=== PATIENT | female | born 1975 | race Caucasian/White ===

== ENCOUNTER 2016-09-18 17:45 | Emergency (ER) | payer OTHER ==
[~2016-09-18] VITALS: Ht 157.5 cm; Wt 82.0 kg
[~2016-09-18 17:45] MED LIST: ABILIFY10 M1 PO; ACYCLOVIR400 MG PO; ADVAIR DISK1 INH; AMOXICILLIN500 MG PO; ATIVAN0.5 MG PO; AUGMENTIN875TAB PO; BACTRIM DS1 TAB PO; BUSPAR5 MG PO; CELEXA20 M1 PO; CEPHALEXIN500 MG PO; CIPROFLOXACN500 MG PO; DIVALPROEX SOD250 MG PO; HALDOL5 MG PO; LAMICTAL25 M2 PO; LISINOPRIL10 MG PO; LORTAB 10-325 M1 TAB PO; MACROBID100 MG PO; METOPROL TAR25 MG PO; METRONIDAZOL500 MG PO; MULTIVITAL-M PO; NAPROSYN500 MG PO; NITROSTAT0.4 MG SL; OLANZAPINE10 MG PO; PAXIL30 MG PO; PREDNISONE10 MG PO; PREVACID30 M3 PO; PROAIR HFA IN; PROMETHAZI6.25 MG/5 PO; PROZAC10 MG PO; PROZAC20 MG PO; REMERON15 MG PO; ROBITUSSIN AC10 ML PO; SEROQUEL25 MG PO; SIMVASTATIN10 MG PO; TRAZODONE50 MG PO; ULTRAM50 M1 PO; VASOTEC5 MG PO; VENTOLIN HFA IN; VISTARIL 50MG C50 M1 PO; VISTARIL25 MG PO; ZOFRAN ODT4 MG PO; ZOFRAN4 MG/TAB PO
[2016-09-18 18:31] LABS: HEMATOCRIT 35.9 % (37.0-47.0); HEMOGLOBIN 11.6 g/dl (12.0-16.0); IMMATURE GRANULOCYTES 0.6 % (0.0-1.0); MEAN CELL VOLUME 91.1 fL CALC (80.0-100.0); MEAN CORPUSCULAR HGB 29.4 pG CALC (26.0-32.0); MEAN CORPUSCULAR HGB CONC 32.3 g/L CALC (32.0-36.0); NEUT# 5.16 thou/uL (2.00-7.15); RED BLOOD COUNT 3.94 mill/uL (4.20-5.60); RED CELL DISTRI WIDTH 15.9 % (11.5-15.5)
[2016-09-18 18:51] LABS: ALKALINE PHOSPHATASE 175 u/l (38-126); ANION GAP 16 (6-22 (CALC)); BILIRUBIN, TOTAL 0.3 mg/dL (0.0-1.4); BUN 4 mg/dL (7-17); BUN/CREATININE RATIO 7 (12-20 (CALC)); CALCIUM 9.8 mg/dL (8.4-10.2); CARBON DIOXIDE 28 mmol/l (22-30); CHLORIDE 103 mmol/l (95-108); CREATININE 0.7 mg/dL (0.5-1.0); GFR > 60 ML/MIN (>=60 (CALC)); GFR FOR AFR.AMER. > 60 ML/MIN (>=60 (CALC)); GLUCOSE 83 mg/dL (65-105); POTASSIUM 3.9 mmol/l (3.5-5.1); SGOT/AST 43 u/l (14-36); SGPT/ALT 51 u/l (9-52); SODIUM 143 mmol/l (137-146); TOTAL PROTEIN 7.2 g/dL (6.3-8.2)
[2016-09-18 18:58] LABS: MYOGLOBIN 31 ng/mL (0 - 62)
--- NOTE | 2016-09-18 20:25 | NUR ---
EXPLANATION GIVEN IN HOW TO BREATH DEEPLY FOR GOOD DEPOSITION TO THE LUNGS.
[2016-09-18] MEDS ORDERED: VENTOLIN HFA IN (21:15)
[2016-09-18] MEDS ORDERED: PREDNISONE10 MG PO (21:15)
[2016-09-18] MEDS ORDERED: PEPCID20 MG PO (21:16)
[2016-09-18 21:33] VITALS: BP 138/83
[2016-09-18 22:20] LABS: URINE BILIRUBIN - DIPSTICK NEGATIVE (NEGATIVE); URINE BLOOD DIPSTICK NEGATIVE (NEGATIVE); URINE CLARITY CLEAR; URINE COLOR YELLOW; URINE GLUCOSE - DIPSTICK NEGATIVE (NEGATIVE); URINE KETONE NEGATIVE (NEGATIVE); URINE LEUK ESTERASE NEGATIVE (Negative); URINE NITRITE - DIPSTICK NEGATIVE (Negative); URINE PROTEIN - DIPSTICK NEGATIVE (NEG-TRACE); URINE SPECIFIC GRAVITY <=1.005; URINE UROBILINOGEN - DIPSTICK 0.2 E.U./dL (0.2)
== END 2016-09-18 21:33 | disposition home or self-care (01) | DRG 918 ==
LOC: ED 17:45 → ED-I 20:50 → ED 21:33
PROVIDERS: Emergency Medicine
DX: T36.0X5A Adverse effect of penicillins, initial encounter (principal); J44.1 Chronic obstructive pulmonary disease with (acute) exacerbation; I10 Essential (primary) hypertension; J45.909 Unspecified asthma, uncomplicated; F41.9 Anxiety disorder, unspecified; E11.9 Type 2 diabetes mellitus without complications; F10.10 Alcohol abuse, uncomplicated; G40.909 Epilepsy, unspecified, not intractable, without status epilepticus; F31.9 Bipolar disorder, unspecified; E78.5 Hyperlipidemia, unspecified; F17.210 Nicotine dependence, cigarettes, uncomplicated

== ENCOUNTER 2016-10-15 11:05 | Emergency (ER) | payer OTHER ==
[~2016-10-15] VITALS: Ht 157.5 cm; Wt 85.0 kg
[~2016-10-15 11:05] MED LIST changes: +PEPCID20 MG PO
[2016-10-15] MEDS ORDERED: PREDNISONE10 MG PO (11:46)
[2016-10-15] MEDS ORDERED: TRAMADOL HYDROC50 MG PO (11:46)
[2016-10-15] MEDS ORDERED: VALTREX1 GM PO (11:46)
[2016-10-15 11:50] VITALS: BP 135/84
== END 2016-10-15 11:51 | disposition home or self-care (01) | DRG 74 ==
LOC: ED 11:05
DX: G51.0 Bell's palsy (principal); R50.9 Fever, unspecified

== ENCOUNTER 2016-10-23 17:55 | Emergency (ER) | payer OTHER ==
[~2016-10-23] VITALS: Ht 154.9 cm; Wt 85.0 kg
[~2016-10-23 17:55] MED LIST changes: +TRAMADOL HYDROC50 MG PO; +VALTREX1 GM PO
[2016-10-23 19:47] LABS: HEMATOCRIT 34.8 % (37.0-47.0); HEMOGLOBIN 11.4 g/dl (12.0-16.0); IMMATURE GRANULOCYTES 0.7 % (0.0-1.0); MEAN CELL VOLUME 89.7 fL CALC (80.0-100.0); MEAN CORPUSCULAR HGB 29.4 pG CALC (26.0-32.0); MEAN CORPUSCULAR HGB CONC 32.8 g/L CALC (32.0-36.0); NEUT# 6.39 thou/uL (2.00-7.15); RED BLOOD COUNT 3.88 mill/uL (4.20-5.60)
[2016-10-23 19:49] LABS: URINE BILIRUBIN - DIPSTICK NEGATIVE (NEGATIVE); URINE BLOOD DIPSTICK NEGATIVE (NEGATIVE); URINE CLARITY CLEAR; URINE COLOR YELLOW; URINE GLUCOSE - DIPSTICK NEGATIVE (NEGATIVE); URINE KETONE NEGATIVE (NEGATIVE); URINE LEUK ESTERASE NEGATIVE (NEGATIVE); URINE NITRITE - DIPSTICK NEGATIVE (Negative); URINE PROTEIN - DIPSTICK NEGATIVE (NEG-TRACE); URINE SPECIFIC GRAVITY <=1.005; URINE UROBILINOGEN - DIPSTICK 0.2 E.U./dL (0.2)
[2016-10-23 20:19] LABS: ALKALINE PHOSPHATASE 168 u/l (38-126); ANION GAP 15 (6-22 (CALC)); BILIRUBIN, TOTAL 0.2 mg/dL (0.0-1.4); BUN 6 mg/dL (7-17); BUN/CREATININE RATIO 8 (12-20 (CALC)); CALCIUM 9.6 mg/dL (8.4-10.2); CARBON DIOXIDE 28 mmol/l (22-30); CHLORIDE 106 mmol/l (95-108); CREATININE 0.7 mg/dL (0.5-1.0); GFR > 60 ML/MIN (>=60 (CALC)); GFR FOR AFR.AMER. > 60 ML/MIN (>=60 (CALC)); GLUCOSE 98 mg/dL (65-105); SGOT/AST 29 u/l (14-36); SGPT/ALT 40 u/l (9-52); SODIUM 144 mmol/l (137-146); TOTAL PROTEIN 6.8 g/dL (6.3-8.2)
[2016-10-23 20:32] LABS: MYOGLOBIN 19 ng/mL (0 - 62)
[2016-10-23 20:58] VITALS: BP 126/78
[2016-10-23] MEDS ORDERED: IBUPROFEN600 MG PO (21:01)
== END 2016-10-23 21:00 | disposition home or self-care (01) | DRG 948 ==
LOC: ED 17:55
PROVIDERS: Emergency Medicine
DX: R60.0 Localized edema (principal)

== ENCOUNTER 2016-11-19 14:39 | Emergency (ER) | payer OTHER ==
[~2016-11-19] VITALS: Ht 154.9 cm; Wt 127.0 kg
[~2016-11-19 14:39] MED LIST changes: +IBUPROFEN600 MG PO
[2016-11-19 15:51] LABS: HEMATOCRIT 36.9 % (37.0-47.0); HEMOGLOBIN 12.2 g/dl (12.0-16.0); IMMATURE GRANULOCYTES 0.4 % (0.0-1.0); MEAN CELL VOLUME 87.2 fL CALC (80.0-100.0); MEAN CORPUSCULAR HGB 28.8 pG CALC (26.0-32.0); MEAN CORPUSCULAR HGB CONC 33.1 g/L CALC (32.0-36.0); NEUT# 6.43 thou/uL (2.00-7.15); RED BLOOD COUNT 4.23 mill/uL (4.20-5.60); RED CELL DISTRI WIDTH 14.7 % (11.5-15.5)
[2016-11-19 16:10] LABS: ALBUMIN 4.5 g/dL (3.2-5.0); ALKALINE PHOSPHATASE 159 u/l (38-126); ANION GAP 18 (6-22 (CALC)); BILIRUBIN, TOTAL 0.4 mg/dL (0.0-1.4); BUN 9 mg/dL (7-17); BUN/CREATININE RATIO 11 (12-20 (CALC)); CALCIUM 10.2 mg/dL (8.4-10.2); CARBON DIOXIDE 26 mmol/l (22-30); CHLORIDE 101 mmol/l (95-108); CREATININE 0.8 mg/dL (0.5-1.0); GFR > 60 ML/MIN (>=60 (CALC)); GFR FOR AFR.AMER. > 60 ML/MIN (>=60 (CALC)); GLUCOSE 123 mg/dL (65-105); SGOT/AST 28 u/l (14-36); SGPT/ALT 38 u/l (9-52); SODIUM 141 mmol/l (137-146); TOTAL PROTEIN 7.5 g/dL (6.3-8.2)
[2016-11-19 16:22] LABS: MYOGLOBIN 51 ng/mL (0 - 62)
[2016-11-19 16:37] LABS: URINE BILIRUBIN - DIPSTICK NEGATIVE (NEGATIVE); URINE BLOOD DIPSTICK NEGATIVE (NEGATIVE); URINE CLARITY CLEAR; URINE COLOR YELLOW; URINE GLUCOSE - DIPSTICK NEGATIVE (NEGATIVE); URINE KETONE NEGATIVE (NEGATIVE); URINE LEUK ESTERASE NEGATIVE (NEGATIVE); URINE NITRITE - DIPSTICK NEGATIVE (Negative); URINE PROTEIN - DIPSTICK NEGATIVE (NEG-TRACE); URINE SPECIFIC GRAVITY <=1.005; URINE UROBILINOGEN - DIPSTICK 0.2 E.U./dL (0.2)
[2016-11-19 16:55] LABS: BARBITURATES NEGATIVE (NEGATIVE); COCAINE NEGATIVE (NEGATIVE); METHADONE NEGATIVE (NEGATIVE); OXCYCODONE NEGATIVE (NEGATIVE); TETRAHYDROCANNABIONOL NEGATIVE (NEGATIVE); TRICYLIC ANTIDEPRESSANTS NEGATIVE (NEGATIVE)
[2016-11-19] MEDS ORDERED: PANTOPRAZOLE SO40 MG PO (17:44)
[2016-11-19] MEDS ORDERED: MIRTAZAPINE15 M1 PO (17:45)
[2016-11-19] MEDS ORDERED: NEURONTIN300 MG PO (17:46)
[2016-11-19] MEDS ORDERED: LISINOPRIL2.5 MG PO ×2 (17:47→17:56)
[2016-11-19] MEDS ORDERED: RISPERDAL PO (17:48)
[2016-11-19] MEDS ORDERED: MEDDOSEPAK PO (17:56)
[2016-11-19] MEDS ORDERED: METFORMIN500 M1 PO (17:56)
[2016-11-19] MEDS ORDERED: ZPAK PO (17:56)
[2016-11-19] MEDS ORDERED: METFORMIN500 MG PO (17:59)
[2016-11-19 18:05] VITALS: BP 165/96
== END 2016-11-19 18:38 | disposition home or self-care (01) | DRG 192 ==
LOC: ED 14:39
PROVIDERS: Emergency Medicine
DX: J44.1 Chronic obstructive pulmonary disease with (acute) exacerbation (principal); I10 Essential (primary) hypertension; E11.9 Type 2 diabetes mellitus without complications; F41.9 Anxiety disorder, unspecified; F31.9 Bipolar disorder, unspecified; G40.909 Epilepsy, unspecified, not intractable, without status epilepticus; F17.210 Nicotine dependence, cigarettes, uncomplicated

== ENCOUNTER 2017-01-28 18:26 | Emergency (ER) | payer OTHER ==
[~2017-01-28] VITALS: Ht 154.9 cm; Wt 82.0 kg
[~2017-01-28 18:26] MED LIST changes: +LISINOPRIL2.5 MG PO; +MEDDOSEPAK PO; +METFORMIN500 M1 PO; +METFORMIN500 MG PO; +MIRTAZAPINE15 M1 PO; +NEURONTIN300 MG PO; +PANTOPRAZOLE SO40 MG PO; +RISPERDAL PO; +ZPAK PO
[2017-01-28] MEDS ORDERED: PERCOCET 5/325M1 TAB PO (19:27)
[2017-01-28 19:50] VITALS: BP 129/74
== END 2017-01-28 19:50 | disposition home or self-care (01) | DRG 563 ==
LOC: ED 18:26
DX: S93.401A Sprain of unspecified ligament of right ankle, initial encounter (principal); M77.31 Calcaneal spur, right foot; W17.2XXA Fall into hole, initial encounter; Y93.89 Activity, other specified; Y92.007 Garden or yard of unspecified non-institutional (private) residence as the place of occurrence of the external cause

== ENCOUNTER 2017-03-06 17:02 | Emergency (ER) | payer OTHER ==
[~2017-03-06] VITALS: Ht 154.9 cm; Wt 80.0 kg
[~2017-03-06 17:02] MED LIST changes: +PERCOCET 5/325M1 TAB PO
[2017-03-06] MEDS ORDERED: GABAPENTIN100 MG PO (17:48)
[2017-03-06] MEDS ORDERED: PERCOCET 5/325M1 TAB PO (17:48)
[2017-03-06 18:45] VITALS: BP 130/70
== END 2017-03-06 18:25 | disposition home or self-care (01) | DRG 74 ==
LOC: ED 17:02
DX: G62.9 Polyneuropathy, unspecified (principal); M79.604 Pain in right leg; M79.605 Pain in left leg; M79.672 Pain in left foot; M79.671 Pain in right foot

== ENCOUNTER 2017-04-13 17:01 | Emergency (ER) | payer OTHER ==
[~2017-04-13] VITALS: Ht 154.9 cm; Wt 197.0 kg
[~2017-04-13 17:01] MED LIST changes: +GABAPENTIN100 MG PO
[2017-04-13 17:50] LABS: HEMATOCRIT 35.7 % (37.0-47.0); HEMOGLOBIN 11.2 g/dl (12.0-16.0); IMMATURE GRANULOCYTES 0.6 % (0.0-1.0); MEAN CELL VOLUME 83.8 fL CALC (80.0-100.0); MEAN CORPUSCULAR HGB 26.3 pG CALC (26.0-32.0); MEAN CORPUSCULAR HGB CONC 31.4 g/L CALC (32.0-36.0); NEUT# 7.68 thou/uL (2.00-7.15); RED BLOOD COUNT 4.26 mill/uL (4.20-5.60); RED CELL DISTRI WIDTH 16.9 % (11.5-15.5)
[2017-04-13 18:06] LABS: ALBUMIN 4.4 g/dL (3.2-5.0); ALKALINE PHOSPHATASE 174 u/l (38-126); ANION GAP 20 (6-22 (CALC)); BILIRUBIN, TOTAL 0.6 mg/dL (0.0-1.4); BUN 6 mg/dL (7-17); BUN/CREATININE RATIO 7 (12-20 (CALC)); CALCIUM 10.2 mg/dL (8.4-10.2); CARBON DIOXIDE 25 mmol/l (22-30); CHLORIDE 103 mmol/l (95-108); CREATININE 0.8 mg/dL (0.5-1.0); GFR > 60 ML/MIN (>=60 (CALC)); GFR FOR AFR.AMER. > 60 ML/MIN (>=60 (CALC)); GLUCOSE 120 mg/dL (65-105); POTASSIUM 4.1 mmol/l (3.5-5.1); SGOT/AST 38 u/l (14-36); SGPT/ALT 55 u/l (9-52); SODIUM 144 mmol/l (137-146); TOTAL PROTEIN 7.3 g/dL (6.3-8.2)
[2017-04-13] MEDS ORDERED: PREDNISONE50 MG PO (19:14)
[2017-04-13] MEDS ORDERED: VENTOLIN HFA IN (19:14)
[2017-04-13] MEDS ORDERED: ZITHROMAX250 MG PO (19:14)
[2017-04-13] MEDS ORDERED: METFORMIN500 MG PO (19:29)
[2017-04-13 21:10] VITALS: BP 159/79
== END 2017-04-13 21:10 | disposition home or self-care (01) | DRG 203 ==
LOC: ED 17:01
PROVIDERS: Emergency Medicine
DX: J20.9 Acute bronchitis, unspecified (principal); F17.210 Nicotine dependence, cigarettes, uncomplicated; R00.0 Tachycardia, unspecified; R06.2 Wheezing; R50.9 Fever, unspecified; R05 Cough

== ENCOUNTER 2017-04-20 17:30 | Emergency (ER) | payer OTHER ==
[~2017-04-20] VITALS: Ht 154.9 cm; Wt 80.0 kg
[~2017-04-20 17:30] MED LIST changes: +PREDNISONE50 MG PO; +ZITHROMAX250 MG PO
[2017-04-20 19:19] LABS: URINE BILIRUBIN - DIPSTICK NEGATIVE (NEGATIVE); URINE BLOOD DIPSTICK NEGATIVE (NEGATIVE); URINE COLOR YELLOW; URINE GLUCOSE - DIPSTICK NEGATIVE (NEGATIVE); URINE KETONE NEGATIVE (NEGATIVE); URINE LEUK ESTERASE NEGATIVE (NEGATIVE); URINE NITRITE - DIPSTICK NEGATIVE (Negative); URINE PROTEIN - DIPSTICK NEGATIVE (NEG-TRACE); URINE SPECIFIC GRAVITY <=1.005; URINE UROBILINOGEN - DIPSTICK 0.2 E.U./dL (0.2)
[2017-04-20 19:36] LABS: URINE CLARITY CLEAR
[2017-04-20 19:53] LABS: HEMATOCRIT 37.4 % (37.0-47.0); HEMOGLOBIN 11.8 g/dl (12.0-16.0); IMMATURE GRANULOCYTES 0.8 % (0.0-1.0); MEAN CELL VOLUME 84.6 fL CALC (80.0-100.0); MEAN CORPUSCULAR HGB 26.7 pG CALC (26.0-32.0); MEAN CORPUSCULAR HGB CONC 31.6 g/L CALC (32.0-36.0); NEUT# 8.42 thou/uL (2.00-7.15); RED BLOOD COUNT 4.42 mill/uL (4.20-5.60)
[2017-04-20 19:57] LABS: ALKALINE PHOSPHATASE 125 u/l (38-126); ANION GAP 17 (6-22 (CALC)); BILIRUBIN, TOTAL 0.4 mg/dL (0.0-1.4); BUN 5 mg/dL (7-17); BUN/CREATININE RATIO 6 (12-20 (CALC)); CALCIUM 9.6 mg/dL (8.4-10.2); CARBON DIOXIDE 26 mmol/l (22-30); CHLORIDE 106 mmol/l (95-108); CREATININE 0.8 mg/dL (0.5-1.0); GFR > 60 ML/MIN (>=60 (CALC)); GFR FOR AFR.AMER. > 60 ML/MIN (>=60 (CALC)); GLUCOSE 108 mg/dL (65-105); POTASSIUM 3.3 mmol/l (3.5-5.1); SGOT/AST 32 u/l (14-36); SGPT/ALT 54 u/l (9-52); SODIUM 145 mmol/l (137-146); TOTAL PROTEIN 6.6 g/dL (6.3-8.2)
[2017-04-20] MEDS ORDERED: CIPROFLOXACN500 MG PO (20:05)
[2017-04-20 20:25] VITALS: BP 138/88
== END 2017-04-20 20:28 | disposition home or self-care (01) | DRG 203 ==
LOC: ED 17:30
PROVIDERS: Emergency Medicine
DX: J20.9 Acute bronchitis, unspecified (principal); J44.9 Chronic obstructive pulmonary disease, unspecified; Z72.0 Tobacco use; R05 Cough; R06.2 Wheezing; R50.9 Fever, unspecified

== ENCOUNTER 2017-05-21 16:21 | Emergency (ER) | payer OTHER ==
[~2017-05-21] VITALS: Ht 154.9 cm; Wt 95.5 kg
[2017-05-21 17:32] LABS: URINE BILIRUBIN - DIPSTICK NEGATIVE (NEGATIVE); URINE BLOOD DIPSTICK NEGATIVE (NEGATIVE); URINE COLOR YELLOW; URINE GLUCOSE - DIPSTICK NEGATIVE (NEGATIVE); URINE KETONE NEGATIVE (NEGATIVE); URINE LEUK ESTERASE TRACE (NEGATIVE); URINE NITRITE - DIPSTICK NEGATIVE (Negative); URINE PH 5.5 (4.5-8.0); URINE PROTEIN - DIPSTICK NEGATIVE (NEG-TRACE); URINE SPECIFIC GRAVITY <=1.005; URINE UROBILINOGEN - DIPSTICK 0.2 E.U./dL (0.2)
[2017-05-21 17:34] LABS: URINE CLARITY CLEAR
[2017-05-21 17:35] LABS: HEMATOCRIT 37.8 % (37.0-47.0); HEMOGLOBIN 12.1 g/dl (12.0-16.0); IMMATURE GRANULOCYTES 0.3 % (0.0-1.0); MEAN CELL VOLUME 84.6 fL CALC (80.0-100.0); MEAN CORPUSCULAR HGB 27.1 pG CALC (26.0-32.0); NEUT# 8.54 thou/uL (2.00-7.15); RED BLOOD COUNT 4.47 mill/uL (4.20-5.60); RED CELL DISTRI WIDTH 16.4 % (11.5-15.5)
[2017-05-21 17:57] LABS: ALBUMIN 3.9 g/dL (3.2-5.0); ALKALINE PHOSPHATASE 192 u/l (38-126); ANION GAP 16 (6-22 (CALC)); BILIRUBIN, TOTAL 0.1 mg/dL (0.0-1.4); BUN 5 mg/dL (7-17); BUN/CREATININE RATIO 8 (12-20 (CALC)); CALCIUM 9.7 mg/dL (8.4-10.2); CARBON DIOXIDE 25 mmol/l (22-30); CHLORIDE 106 mmol/l (95-108); CREATININE 0.6 mg/dL (0.5-1.0); GFR > 60 ML/MIN (>=60 (CALC)); GFR FOR AFR.AMER. > 60 ML/MIN (>=60 (CALC)); GLUCOSE 98 mg/dL (65-105); LIPASE 68 u/l (23-300); POTASSIUM 3.9 mmol/l (3.5-5.1); SGOT/AST 20 u/l (14-36); SGPT/ALT 35 u/l (9-52); SODIUM 143 mmol/l (137-146); TOTAL PROTEIN 6.7 g/dL (6.3-8.2)
[2017-05-21] MEDS ORDERED: GABAPENTIN300 M2 PO (18:49)
[2017-05-21 19:07] VITALS: BP 143/91
== END 2017-05-21 19:07 | disposition home or self-care (01) | DRG 74 ==
LOC: ED 16:21
PROVIDERS: Family Medicine
DX: E11.42 Type 2 diabetes mellitus with diabetic polyneuropathy (principal); F17.210 Nicotine dependence, cigarettes, uncomplicated; F31.9 Bipolar disorder, unspecified; F41.9 Anxiety disorder, unspecified; J44.9 Chronic obstructive pulmonary disease, unspecified; I10 Essential (primary) hypertension
CPT/HCPCS: Q9967

== ENCOUNTER 2017-06-01 09:26 | Emergency (ER) | payer OTHER ==
[~2017-06-01] VITALS: Ht 154.9 cm; Wt 80.0 kg
[~2017-06-01 09:26] MED LIST changes: +GABAPENTIN300 M2 PO
[2017-06-01] MEDS ORDERED: TRAMADOL HYDROC50 MG PO (10:00)
[2017-06-01] MEDS ORDERED: EC-NAPROSYN500 MG PO (10:00)
[2017-06-01 10:42] VITALS: BP 132/91
== END 2017-06-01 10:42 | disposition home or self-care (01) | DRG 605 ==
LOC: ED 09:26
DX: S70.02XA Contusion of left hip, initial encounter (principal); S83.92XA Sprain of unspecified site of left knee, initial encounter; S93.402A Sprain of unspecified ligament of left ankle, initial encounter; W01.198A Fall on same level from slipping, tripping and stumbling with subsequent striking against other object, initial encounter; Y93.9 Activity, unspecified; Y92.009 Unspecified place in unspecified non-institutional (private) residence as the place of occurrence of the external cause

== ENCOUNTER 2017-06-08 11:20 | Emergency (ER) | payer OTHER ==
[~2017-06-08] VITALS: Ht 154.9 cm; Wt 90.0 kg
[~2017-06-08 11:20] MED LIST changes: +EC-NAPROSYN500 MG PO
[2017-06-08] MEDS ORDERED: TORADOL PO (12:46)
[2017-06-08 13:28] VITALS: BP 122/81
== END 2017-06-08 13:30 | disposition home or self-care (01) | DRG 556 ==
LOC: ED 11:20
DX: M25.552 Pain in left hip (principal); M79.605 Pain in left leg

== ENCOUNTER 2017-06-19 10:36 | Emergency (ER) | payer OTHER ==
[~2017-06-19] VITALS: Ht 154.9 cm; Wt 83.5 kg
[~2017-06-19 10:36] MED LIST changes: +TORADOL PO
[2017-06-19] MEDS ORDERED: LYRICA25 MG PO (10:57)
[2017-06-19] MEDS ORDERED: VITAMIN D1000 UNI1 PO (10:58)
[2017-06-19] MEDS ORDERED: METFORMIN500 MG PO (11:04)
[2017-06-19] MEDS ORDERED: NEURONTIN300 MG PO (11:05)
[2017-06-19] MEDS ORDERED: ALBUTEROL SUL0.083 % IN (11:06)
[2017-06-19] MEDS ORDERED: PROAIR HFA108 MCG/AC IN (11:06)
[2017-06-19] MEDS ORDERED: SYMBICORT 80-4.5MCG IN (11:07)
[2017-06-19] MEDS ORDERED: NAPROSYN500 MG PO (11:08)
[2017-06-19 11:14] VITALS: BP 145/84
== END 2017-06-19 11:14 | disposition home or self-care (01) | DRG 93 ==
LOC: ED 10:36
DX: G89.29 Other chronic pain (principal); M25.512 Pain in left shoulder; M25.552 Pain in left hip

== ENCOUNTER 2017-07-13 08:29 | Emergency (ER) | payer OTHER ==
[~2017-07-13] VITALS: Ht 154.9 cm; Wt 90.0 kg
[~2017-07-13 08:29] MED LIST changes: +ALBUTEROL SUL0.083 % IN; +LYRICA25 MG PO; +PROAIR HFA108 MCG/AC IN; +SYMBICORT 80-4.5MCG IN; +VITAMIN D1000 UNI1 PO
[2017-07-13] MEDS ORDERED: PAROXETINE10 MG PO (09:17)
[2017-07-13] MEDS ORDERED: FERR SULFATE325 MG PO (09:18)
[2017-07-13] MEDS ORDERED: ADULT ASPIRIN E81 MG PO (09:18)
[2017-07-13] MEDS ORDERED: MIRTAZAPINE15 MG PO (09:18)
[2017-07-13] MEDS ORDERED: OLANZAPINE5 MG PO (09:19)
[2017-07-13 09:38] VITALS: BP 123/83
== END 2017-07-13 09:49 | disposition home or self-care (01) | DRG 556 ==
LOC: ED 08:29
DX: M25.551 Pain in right hip (principal); M16.11 Unilateral primary osteoarthritis, right hip

== ENCOUNTER 2017-07-14 17:53 | Emergency (ER) | payer OTHER ==
[~2017-07-14] VITALS: Ht 154.9 cm; Wt 84.0 kg
[~2017-07-14 17:53] MED LIST changes: +ADULT ASPIRIN E81 MG PO; +FERR SULFATE325 MG PO; +MIRTAZAPINE15 MG PO; +OLANZAPINE5 MG PO; +PAROXETINE10 MG PO
[2017-07-14 18:01] VITALS: BP 132/97
== END 2017-07-14 18:33 | disposition left against medical advice (07) | DRG 951 ==
LOC: ED 17:53 → LWOBS 18:33
DX: Z91.19 Patient's noncompliance with other medical treatment and regimen (principal)

== ENCOUNTER 2017-07-15 07:14 | Emergency (ER) | payer OTHER ==
[~2017-07-15] VITALS: Ht 154.9 cm; Wt 90.0 kg
[2017-07-15 07:22] VITALS: BP 134/93
[2017-07-15 07:56] LABS: URINE BILIRUBIN - DIPSTICK NEGATIVE (NEGATIVE); URINE BLOOD DIPSTICK NEGATIVE (NEGATIVE); URINE COLOR YELLOW; URINE GLUCOSE - DIPSTICK NEGATIVE (NEGATIVE); URINE KETONE NEGATIVE (NEGATIVE); URINE LEUK ESTERASE NEGATIVE (NEGATIVE); URINE NITRITE - DIPSTICK NEGATIVE (Negative); URINE PH 5.5 (4.5-8.0); URINE PROTEIN - DIPSTICK NEGATIVE (NEG-TRACE); URINE SPECIFIC GRAVITY 1.025; URINE UROBILINOGEN - DIPSTICK 0.2 E.U./dL (0.2)
[2017-07-15 07:58] LABS: URINE CLARITY CLEAR
[2017-07-15 08:00] LABS: BARBITURATES NEGATIVE (NEGATIVE); COCAINE NEGATIVE (NEGATIVE); METHADONE NEGATIVE (NEGATIVE); OXCYCODONE NEGATIVE (NEGATIVE); TETRAHYDROCANNABIONOL POSITIVE (NEGATIVE); TRICYLIC ANTIDEPRESSANTS POSITIVE (NEGATIVE)
== END 2017-07-15 08:50 | disposition home or self-care (01) | DRG 552 ==
LOC: ED 07:14
PROVIDERS: Family Medicine
DX: M54.5 Low back pain (principal)

== ENCOUNTER 2017-07-22 15:57 | Emergency (ER) | payer OTHER ==
[~2017-07-22] VITALS: Ht 154.9 cm; Wt 100.0 kg
[2017-07-22] MEDS ORDERED: LISINOPRIL10 M1 PO (16:28)
[2017-07-22] MEDS ORDERED: TRAMADOL HCL50 MG PO (16:29)
[2017-07-22] MEDS ORDERED: HYDROXYCHLOR200 M1 PO (16:29)
[2017-07-22] MEDS ORDERED: ALBUTEROL SUL0.083 % IN (16:31)
[2017-07-22] MEDS ORDERED: ASPIRIN CHEWABL81 MG PO (16:35)
[2017-07-22] MEDS ORDERED: TORADOL PO (16:59)
[2017-07-22 17:13] VITALS: BP 134/79
== END 2017-07-22 17:13 | disposition home or self-care (01) | DRG 556 ==
LOC: ED 15:57
DX: M25.552 Pain in left hip (principal); M25.551 Pain in right hip; G89.29 Other chronic pain; E11.40 Type 2 diabetes mellitus with diabetic neuropathy, unspecified; M32.9 Systemic lupus erythematosus, unspecified; I10 Essential (primary) hypertension; F17.210 Nicotine dependence, cigarettes, uncomplicated

== ENCOUNTER 2017-08-15 11:40 | Emergency (ER) | payer OTHER ==
[~2017-08-15] VITALS: Ht 154.9 cm; Wt 80.0 kg
[~2017-08-15 11:40] MED LIST changes: +ASPIRIN CHEWABL81 MG PO; +HYDROXYCHLOR200 M1 PO; +LISINOPRIL10 M1 PO; +TRAMADOL HCL50 MG PO
[2017-08-15] MEDS ORDERED: GABAPENTIN100 MG PO (11:56)
[2017-08-15] MEDS ORDERED: LORTAB 1010 MG PO (12:46)
[2017-08-15 13:00] VITALS: BP 128/98
== END 2017-08-15 13:00 | disposition home or self-care (01) | DRG 563 ==
LOC: ED 11:40
DX: S93.402A Sprain of unspecified ligament of left ankle, initial encounter (principal); E11.40 Type 2 diabetes mellitus with diabetic neuropathy, unspecified; M32.9 Systemic lupus erythematosus, unspecified; I10 Essential (primary) hypertension; F17.210 Nicotine dependence, cigarettes, uncomplicated; W17.2XXA Fall into hole, initial encounter; Y93.89 Activity, other specified; Y92.008 Other place in unspecified non-institutional (private) residence as the place of occurrence of the external cause

== ENCOUNTER 2017-09-06 10:17 | Emergency (ER) | payer OTHER ==
[~2017-09-06] VITALS: Ht 154.9 cm; Wt 63.6 kg
[~2017-09-06 10:17] MED LIST changes: +LORTAB 1010 MG PO
[2017-09-06 12:05] LABS: HEMATOCRIT 36.5 % (37.0-47.0); IMMATURE GRANULOCYTES 0.5 % (0.0-1.0); MEAN CELL VOLUME 87.7 fL CALC (80.0-100.0); MEAN CORPUSCULAR HGB 28.8 pG CALC (26.0-32.0); MEAN CORPUSCULAR HGB CONC 32.9 g/L CALC (32.0-36.0); NEUT# 7.72 thou/uL (2.00-7.15); RED BLOOD COUNT 4.16 mill/uL (4.20-5.60); RED CELL DISTRI WIDTH 16.3 % (11.5-15.5)
[2017-09-06 12:21] LABS: INTERNATIONAL NORMALIZED RATIO 0.9 RATIO (0.7-1.3); PROTHROMBIN TIME 10.3 SECONDS (9.0-12.5)
[2017-09-06 12:34] LABS: ANION GAP 16 (6-22 (CALC)); BUN 3 mg/dL (7-17); BUN/CREATININE RATIO 4 (12-20 (CALC)); CARBON DIOXIDE 25 mmol/l (22-30); CHLORIDE 105 mmol/l (95-108); CREATININE 0.8 mg/dL (0.5-1.0); GFR > 60 ML/MIN (>=60 (CALC)); GFR FOR AFR.AMER. > 60 ML/MIN (>=60 (CALC)); SODIUM 142 mmol/l (137-146)
[2017-09-06 14:30] VITALS: BP 115/87
[2017-09-06 15:01] LABS: URINE BILIRUBIN - DIPSTICK NEGATIVE (NEGATIVE); URINE BLOOD DIPSTICK NEGATIVE (NEGATIVE); URINE COLOR YELLOW; URINE GLUCOSE - DIPSTICK NEGATIVE (NEGATIVE); URINE KETONE NEGATIVE (NEGATIVE); URINE LEUK ESTERASE NEGATIVE (NEGATIVE); URINE NITRITE - DIPSTICK NEGATIVE (Negative); URINE PROTEIN - DIPSTICK NEGATIVE (NEG-TRACE); URINE SPECIFIC GRAVITY <=1.005; URINE UROBILINOGEN - DIPSTICK 0.2 E.U./dL (0.2)
[2017-09-06 15:05] LABS: URINE CLARITY CLEAR
== END 2017-09-06 14:30 | disposition short-term general hospital (02) | DRG 999 ==
LOC: ED 10:17
PROVIDERS: Family Medicine
DX: S32.511A Fracture of superior rim of right pubis, initial encounter for closed fracture (principal); S32.10XA Unspecified fracture of sacrum, initial encounter for closed fracture; E11.40 Type 2 diabetes mellitus with diabetic neuropathy, unspecified; M32.9 Systemic lupus erythematosus, unspecified; I10 Essential (primary) hypertension; F17.210 Nicotine dependence, cigarettes, uncomplicated; X58.XXXA Exposure to other specified factors, initial encounter; Y93.89 Activity, other specified

== ENCOUNTER 2017-09-19 15:53 | Emergency (ER) | payer OTHER ==
[~2017-09-19] VITALS: Ht 154.9 cm; Wt 83.0 kg
[2017-09-19] MEDS ORDERED: OMNICEF300 M1 PO (17:41)
[2017-09-19] MEDS ORDERED: MOTRIN400 MG PO (18:43)
[2017-09-19 19:06] VITALS: BP 123/81
== END 2017-09-19 19:27 | disposition home or self-care (01) | DRG 603 ==
LOC: ED 15:53
DX: L03.116 Cellulitis of left lower limb (principal); E11.40 Type 2 diabetes mellitus with diabetic neuropathy, unspecified; M32.9 Systemic lupus erythematosus, unspecified; I10 Essential (primary) hypertension; F17.210 Nicotine dependence, cigarettes, uncomplicated

== ENCOUNTER 2017-10-31 16:51 | Emergency (ER) | payer OTHER ==
[~2017-10-31] VITALS: Ht 154.9 cm; Wt 86.3 kg
[~2017-10-31 16:51] MED LIST changes: +MOTRIN400 MG PO; +OMNICEF300 M1 PO; +ROSUVASTATIN CA20 MG
[2017-10-31] MEDS ORDERED: FLEXERIL PO (18:55)
[2017-10-31] MEDS ORDERED: TORADOL PO (18:55)
[2017-10-31 19:25] VITALS: BP 118/69
== END 2017-10-31 19:25 | disposition home or self-care (01) | DRG 563 ==
LOC: ED 16:51
DX: S39.012A Strain of muscle, fascia and tendon of lower back, initial encounter (principal); E11.40 Type 2 diabetes mellitus with diabetic neuropathy, unspecified; M32.9 Systemic lupus erythematosus, unspecified; I10 Essential (primary) hypertension; F17.210 Nicotine dependence, cigarettes, uncomplicated; W01.0XXA Fall on same level from slipping, tripping and stumbling without subsequent striking against object, initial encounter; Y92.009 Unspecified place in unspecified non-institutional (private) residence as the place of occurrence of the external cause

== ENCOUNTER 2018-05-24 17:58 | Emergency (ER) | payer OTHER ==
[~2018-05-24] VITALS: Ht 154.9 cm; Wt 78.0 kg
[~2018-05-24 17:58] MED LIST changes: +FLEXERIL PO
[2018-05-24 20:16] LABS: HEMATOCRIT 33.5 % (37.0-47.0); HEMOGLOBIN 11.4 g/dl (12.0-16.0); IMMATURE GRANULOCYTES 0.2 % (0.0-5.0); MEAN CELL VOLUME 89.6 fL CALC (80.0-100.0); MEAN CORPUSCULAR HGB 30.5 pG CALC (26.0-32.0); NEUT# 4.4 thou/uL (2.00-7.15); RED BLOOD COUNT 3.74 mill/uL (4.20-5.60); RED CELL DISTRI WIDTH 13.2 % (11.5-15.5)
[2018-05-24] MEDS ORDERED: ROBITUSSIN AC10 ML PO (21:00)
[2018-05-24 21:21] VITALS: BP 130/81
== END 2018-05-24 21:21 | disposition home or self-care (01) ==
LOC: ED 17:58
PROVIDERS: Family Medicine
DX: B34.9 Viral infection, unspecified (principal); I10 Essential (primary) hypertension; E11.40 Type 2 diabetes mellitus with diabetic neuropathy, unspecified; M32.9 Systemic lupus erythematosus, unspecified; F17.200 Nicotine dependence, unspecified, uncomplicated; R05 Cough; R19.7 Diarrhea, unspecified; J34.89 Other specified disorders of nose and nasal sinuses

== ENCOUNTER 2018-06-25 17:44 | Emergency (ER) | payer OTHER ==
[~2018-06-25] VITALS: Ht 154.9 cm; Wt 83.0 kg
[2018-06-25 19:00] LABS: HEMATOCRIT 33.1 % (37.0-47.0); HEMOGLOBIN 11.4 g/dl (12.0-16.0); IMMATURE GRANULOCYTES 0.5 % (0.0-5.0); MEAN CELL VOLUME 88.3 fL CALC (80.0-100.0); MEAN CORPUSCULAR HGB 30.4 pG CALC (26.0-32.0); MEAN CORPUSCULAR HGB CONC 34.4 g/L CALC (32.0-36.0); NEUT# 6.49 thou/uL (2.00-7.15); RED BLOOD COUNT 3.75 mill/uL (4.20-5.60); RED CELL DISTRI WIDTH 13.7 % (11.5-15.5)
[2018-06-25 19:12] LABS: ALKALINE PHOSPHATASE 118 u/l (38-126); ANION GAP 15 (6-22 (CALC)); BILIRUBIN, TOTAL 0.2 mg/dL (0.0-1.4); BUN 10 mg/dL (7-17); BUN/CREATININE RATIO 14 (12-20 (CALC)); CARBON DIOXIDE 21 mmol/l (22-30); CHLORIDE 103 mmol/l (95-108); CREATININE 0.7 mg/dL (0.5-1.0); GFR > 60 ML/MIN (>=60 (CALC)); GFR FOR AFR.AMER. > 60 ML/MIN (>=60 (CALC)); LIPASE 131 u/l (23-300); POTASSIUM 4.1 mmol/l (3.5-5.1); SGOT/AST 19 u/l (14-36); SODIUM 135 mmol/l (137-146); TOTAL PROTEIN 6.5 g/dL (6.3-8.2)
[2018-06-25 19:42] LABS: URINE BILIRUBIN - DIPSTICK NEGATIVE (NEGATIVE); URINE BLOOD DIPSTICK LARGE (NEGATIVE); URINE COLOR YELLOW; URINE GLUCOSE - DIPSTICK NEGATIVE (NEGATIVE); URINE KETONE NEGATIVE (NEGATIVE); URINE LEUK ESTERASE NEGATIVE (NEGATIVE); URINE NITRITE - DIPSTICK NEGATIVE (Negative); URINE PROTEIN - DIPSTICK NEGATIVE (NEG-TRACE); URINE SPECIFIC GRAVITY <=1.005; URINE UROBILINOGEN - DIPSTICK 0.2 E.U./dL (0.2)
[2018-06-25 19:55] LABS: URINE SQUAMOUS EPITHELIAL CELL FEW EPI/hpf (0-FEW); URINE WBC 0-2 WBC/hpf (0-5)
[2018-06-25 19:56] LABS: URINE YEAST RARE hpf
[2018-06-25 20:02] LABS: BARBITURATES NEGATIVE (NEGATIVE); COCAINE NEGATIVE (NEGATIVE); METHADONE NEGATIVE (NEGATIVE); OXCYCODONE NEGATIVE (NEGATIVE); TETRAHYDROCANNABIONOL NEGATIVE (NEGATIVE); TRICYLIC ANTIDEPRESSANTS NEGATIVE (NEGATIVE)
[2018-06-25 21:23] VITALS: BP 127/65
== END 2018-06-25 21:22 | disposition home or self-care (01) ==
LOC: ED 17:44
DX: R10.12 Left upper quadrant pain (principal); I10 Essential (primary) hypertension; E11.40 Type 2 diabetes mellitus with diabetic neuropathy, unspecified; M32.9 Systemic lupus erythematosus, unspecified; F17.210 Nicotine dependence, cigarettes, uncomplicated

== ENCOUNTER 2018-07-25 19:28 | Emergency (ER) | payer OTHER ==
[~2018-07-25] VITALS: Ht 154.9 cm; Wt 78.4 kg
[2018-07-25] MEDS ORDERED: LORTAB 1010 MG PO (20:53)
[2018-07-25 20:56] VITALS: BP 149/106
== END 2018-07-25 21:00 | disposition home or self-care (01) ==
LOC: ED 19:28
DX: S22.32XA Fracture of one rib, left side, initial encounter for closed fracture (principal); I10 Essential (primary) hypertension; E11.40 Type 2 diabetes mellitus with diabetic neuropathy, unspecified; F17.200 Nicotine dependence, unspecified, uncomplicated; W19.XXXA Unspecified fall, initial encounter

== ENCOUNTER 2018-08-11 18:40 | Emergency (ER) | payer OTHER ==
[~2018-08-11] VITALS: Ht 154.9 cm; Wt 78.0 kg
[2018-08-11 21:18] VITALS: BP 122/70
== END 2018-08-11 21:28 | disposition home or self-care (01) ==
LOC: ED 18:40
DX: S20.211A Contusion of right front wall of thorax, initial encounter (principal); I10 Essential (primary) hypertension; E11.40 Type 2 diabetes mellitus with diabetic neuropathy, unspecified; F17.210 Nicotine dependence, cigarettes, uncomplicated; W01.0XXA Fall on same level from slipping, tripping and stumbling without subsequent striking against object, initial encounter; Y92.009 Unspecified place in unspecified non-institutional (private) residence as the place of occurrence of the external cause

== ENCOUNTER 2018-08-25 19:30 | Emergency (ER) | payer OTHER ==
[~2018-08-25] VITALS: Ht 154.9 cm; Wt 78.7 kg
[2018-08-25 20:22] LABS: HEMOGLOBIN 10.9 g/dl (12.0-16.0); IMMATURE GRANULOCYTES 0.6 % (0.0-5.0); MEAN CELL VOLUME 90.9 fL CALC (80.0-100.0); NEUT# 7.82 thou/uL (2.00-7.15); RED BLOOD COUNT 3.63 mill/uL (4.20-5.60); RED CELL DISTRI WIDTH 14.4 % (11.5-15.5)
[2018-08-25 20:33] LABS: ALBUMIN 4.2 g/dL (3.2-5.0); ALKALINE PHOSPHATASE 154 u/l (38-126); ANION GAP 18 (6-22 (CALC)); BILIRUBIN, TOTAL 0.3 mg/dL (0.0-1.4); BUN 7 mg/dL (7-17); BUN/CREATININE RATIO 7 (12-20 (CALC)); CARBON DIOXIDE 19 mmol/l (22-30); CHLORIDE 102 mmol/l (95-108); GFR 60 ML/MIN (>=60 (CALC)); GFR FOR AFR.AMER. > 60 ML/MIN (>=60 (CALC)); POTASSIUM 3.6 mmol/l (3.5-5.1); SGOT/AST 23 u/l (14-36); SODIUM 135 mmol/l (137-146); TOTAL PROTEIN 7.5 g/dL (6.3-8.2)
[2018-08-25 20:43] LABS: MYOGLOBIN 34 ng/mL (0 - 62)
[2018-08-25 21:50] LABS: URINE BILIRUBIN - DIPSTICK NEGATIVE (NEGATIVE); URINE BLOOD DIPSTICK NEGATIVE (NEGATIVE); URINE COLOR YELLOW; URINE GLUCOSE - DIPSTICK NEGATIVE (NEGATIVE); URINE KETONE NEGATIVE (NEGATIVE); URINE LEUK ESTERASE NEGATIVE (NEGATIVE); URINE NITRITE - DIPSTICK NEGATIVE (Negative); URINE PROTEIN - DIPSTICK NEGATIVE (NEG-TRACE); URINE UROBILINOGEN - DIPSTICK 0.2 E.U./dL (0.2)
[2018-08-25 21:55] LABS: BARBITURATES NEGATIVE (NEGATIVE); COCAINE NEGATIVE (NEGATIVE); METHADONE NEGATIVE (NEGATIVE); OXCYCODONE NEGATIVE (NEGATIVE); TETRAHYDROCANNABIONOL NEGATIVE (NEGATIVE); TRICYLIC ANTIDEPRESSANTS NEGATIVE (NEGATIVE)
[2018-08-25] MEDS ORDERED: TORADOL PO (22:15)
[2018-08-25 22:25] VITALS: BP 144/71
== END 2018-08-25 22:25 | disposition home or self-care (01) ==
LOC: ED 19:30
PROVIDERS: Emergency Medicine
DX: R07.89 Other chest pain (principal); I10 Essential (primary) hypertension; E11.40 Type 2 diabetes mellitus with diabetic neuropathy, unspecified; F17.200 Nicotine dependence, unspecified, uncomplicated

== ENCOUNTER 2018-09-05 14:26 | Emergency (ER) | payer OTHER ==
[~2018-09-05] VITALS: Ht 154.9 cm; Wt 60.0 kg
[2018-09-05 14:51] LABS: ALBUMIN 4.4 g/dL (3.2-5.0); ALKALINE PHOSPHATASE 132 u/l (38-126); BILIRUBIN, TOTAL 0.3 mg/dL (0.0-1.4); BUN 8 mg/dL (7-17); BUN/CREATININE RATIO 10 (12-20 (CALC)); CHLORIDE 100 mmol/l (95-108); CREATININE 0.8 mg/dL (0.5-1.0); GFR > 60 ML/MIN (>=60 (CALC)); GFR FOR AFR.AMER. > 60 ML/MIN (>=60 (CALC)); POTASSIUM 4.2 mmol/l (3.5-5.1); SGOT/AST 22 u/l (14-36); SODIUM 137 mmol/l (137-146); TOTAL PROTEIN 7.6 g/dL (6.3-8.2)
[2018-09-05 14:52] LABS: HEMATOCRIT 32.5 % (37.0-47.0); HEMOGLOBIN 10.6 g/dl (12.0-16.0); IMMATURE GRANULOCYTES 0.4 % (0.0-5.0); MEAN CELL VOLUME 92.6 fL CALC (80.0-100.0); MEAN CORPUSCULAR HGB 30.2 pG CALC (26.0-32.0); MEAN CORPUSCULAR HGB CONC 32.6 g/L CALC (32.0-36.0); NEUT# 6.84 thou/uL (2.00-7.15); RED BLOOD COUNT 3.51 mill/uL (4.20-5.60); RED CELL DISTRI WIDTH 14.6 % (11.5-15.5)
[2018-09-05 14:59] LABS: MYOGLOBIN 33 ng/mL (0 - 62)
[2018-09-05 15:03] LABS: ANION GAP 15 (6-22 (CALC)); CARBON DIOXIDE 26 mmol/l (22-30)
[2018-09-05 15:14] LABS: ACT PARTIAL THROMBO TIME 26.9 SECONDS (20.0-32.5); D-DIMER 2.15 mg/L (0.19-0.60); INTERNATIONAL NORMALIZED RATIO 0.9 RATIO (0.7-1.3); PROTHROMBIN TIME 9.9 SECONDS (9.0-12.5)
--- NOTE | 2018-09-05 16:30 | NUR ---
PT. INTUBATED BY DR. SOMMERS WITH 7.5 ET TUBE. PLACEMENT VERIFIED BY EQUAL BREATH SOUNDS AND COLOR CHANGE ON ETCOT. CHEST XRAY CONFIRMED. PLACED ON VENT PER DR. SOMMERS AT AC16/450/40%/+5.
[2018-09-05 17:41] LABS: URINE BILIRUBIN - DIPSTICK NEGATIVE (NEGATIVE); URINE BLOOD DIPSTICK NEGATIVE (NEGATIVE); URINE COLOR YELLOW; URINE GLUCOSE - DIPSTICK NEGATIVE (NEGATIVE); URINE KETONE NEGATIVE (NEGATIVE); URINE LEUK ESTERASE NEGATIVE (NEGATIVE); URINE NITRITE - DIPSTICK NEGATIVE (Negative); URINE PROTEIN - DIPSTICK NEGATIVE (NEG-TRACE); URINE SPECIFIC GRAVITY <=1.005; URINE UROBILINOGEN - DIPSTICK 0.2 E.U./dL (0.2)
[2018-09-05 17:43] LABS: BARBITURATES NEGATIVE (NEGATIVE); COCAINE NEGATIVE (NEGATIVE); METHADONE NEGATIVE (NEGATIVE); OXCYCODONE NEGATIVE (NEGATIVE); TETRAHYDROCANNABIONOL NEGATIVE (NEGATIVE); TRICYLIC ANTIDEPRESSANTS NEGATIVE (NEGATIVE)
[2018-09-05 18:15] VITALS: BP 124/88
== END 2018-09-05 18:16 | disposition short-term general hospital (02) ==
LOC: ED 14:26
PROVIDERS: Family Medicine
DX: R07.9 Chest pain, unspecified (principal); R09.2 Respiratory arrest; S22.42XA Multiple fractures of ribs, left side, initial encounter for closed fracture; R56.9 Unspecified convulsions; I10 Essential (primary) hypertension; E11.40 Type 2 diabetes mellitus with diabetic neuropathy, unspecified; F17.200 Nicotine dependence, unspecified, uncomplicated; X58.XXXA Exposure to other specified factors, initial encounter
CPT/HCPCS: J2060; Q9967

== ENCOUNTER 2018-09-22 15:31 | Emergency (ER) | payer OTHER ==
[~2018-09-22] VITALS: Ht 154.9 cm; Wt 80.0 kg
[2018-09-22 16:05] LABS: MEAN CELL VOLUME 95.4 fL CALC (80.0-100.0); MEAN CORPUSCULAR HGB 30.7 pG CALC (26.0-32.0); MEAN CORPUSCULAR HGB CONC 32.2 g/L CALC (32.0-36.0); NEUT# 11.64 thou/uL (2.00-7.15); RED BLOOD COUNT 4.14 mill/uL (4.20-5.60); RED CELL DISTRI WIDTH 15.9 % (11.5-15.5)
[2018-09-22 16:12] LABS: HEMATOCRIT 39.5 % (37.0-47.0); HEMOGLOBIN 12.7 g/dl (12.0-16.0)
[2018-09-22 16:38] LABS: ALBUMIN 3.9 g/dL (3.2-5.0); ALKALINE PHOSPHATASE 124 u/l (38-126); ANION GAP 14 (6-22 (CALC)); BILIRUBIN, TOTAL 0.4 mg/dL (0.0-1.4); BUN 6 mg/dL (7-17); BUN/CREATININE RATIO 9 (12-20 (CALC)); CARBON DIOXIDE 24 mmol/l (22-30); CHLORIDE 106 mmol/l (95-108); CREATININE 0.6 mg/dL (0.5-1.0); GFR > 60 ML/MIN (>=60 (CALC)); GFR FOR AFR.AMER. > 60 ML/MIN (>=60 (CALC)); POTASSIUM 3.7 mmol/l (3.5-5.1); SGOT/AST 20 u/l (14-36); SODIUM 140 mmol/l (137-146); TOTAL PROTEIN 6.4 g/dL (6.3-8.2)
[2018-09-22 17:09] LABS: TSH, 3RD GENERATION 2.66 uIU/mL (0.47 - 4.68)
[2018-09-22 17:38] LABS: BARBITURATES NEGATIVE (NEGATIVE); COCAINE NEGATIVE (NEGATIVE); METHADONE NEGATIVE (NEGATIVE); OXCYCODONE NEGATIVE (NEGATIVE); TETRAHYDROCANNABIONOL NEGATIVE (NEGATIVE); TRICYLIC ANTIDEPRESSANTS NEGATIVE (NEGATIVE)
[2018-09-22 20:04] VITALS: BP 109/68
== END 2018-09-22 20:17 | disposition left against medical advice (07) ==
LOC: ED 15:31 → ED-I 19:19 → ED 20:17
PROVIDERS: Emergency Medicine
DX: R07.9 Chest pain, unspecified (principal); D72.829 Elevated white blood cell count, unspecified; I10 Essential (primary) hypertension; E11.40 Type 2 diabetes mellitus with diabetic neuropathy, unspecified; F17.200 Nicotine dependence, unspecified, uncomplicated

== ENCOUNTER 2018-11-26 13:10 | Emergency (ER) | payer OTHER ==
[~2018-11-26] VITALS: Ht 154.9 cm; Wt 85.0 kg
[2018-11-26] MEDS ORDERED: ZYPREXA PO (13:37)
[2018-11-26] MEDS ORDERED: GABAPENTIN600 MG PO (13:38)
[2018-11-26] MEDS ORDERED: PAROXETINE HCL40 MG PO (13:38)
[2018-11-26] MEDS ORDERED: NAPROXEN500 MG PO (13:39)
[2018-11-26] MEDS ORDERED: CELECOXIB200 MG PO (13:39)
[2018-11-26] MEDS ORDERED: MOTRIN800 MG PO (13:40)
[2018-11-26] MEDS ORDERED: LISINOPRIL5 MG PO (13:41)
[2018-11-26] MEDS ORDERED: PRILOSEC20 MG/CAP PO (13:42)
[2018-11-26] MEDS ORDERED: SYMBICORT 80-4.5MCG PO (13:42)
[2018-11-26] MEDS ORDERED: MIRTAZAPINE15 MG PO (13:42)
[2018-11-26] MEDS ORDERED: FERR SULFATE325 MG PO (13:43)
[2018-11-26] MEDS ORDERED: CRESTOR20 MG PO (13:44)
[2018-11-26] MEDS ORDERED: TORADOL PO (13:56)
[2018-11-26] MEDS ORDERED: FLEXERIL PO (13:56)
[2018-11-26 14:06] VITALS: BP 120/71
== END 2018-11-26 14:08 | disposition home or self-care (01) ==
LOC: ED 13:10
DX: M54.5 Low back pain (principal); G89.29 Other chronic pain; I10 Essential (primary) hypertension; E11.40 Type 2 diabetes mellitus with diabetic neuropathy, unspecified; F17.210 Nicotine dependence, cigarettes, uncomplicated; Z79.84 Long term (current) use of oral hypoglycemic drugs

== ENCOUNTER 2018-12-28 17:15 | Emergency (ER) | payer OTHER ==
[~2018-12-28] VITALS: Ht 154.9 cm; Wt 85.0 kg
[~2018-12-28 17:15] MED LIST changes: +CELECOXIB200 MG PO; +CRESTOR20 MG PO; +GABAPENTIN600 MG PO; +LISINOPRIL5 MG PO; +MOTRIN800 MG PO; +NAPROXEN500 MG PO; +PAROXETINE HCL40 MG PO; +PRILOSEC20 MG/CAP PO; +SYMBICORT 80-4.5MCG PO; +ZYPREXA PO
[2018-12-28 18:19] LABS: HEMATOCRIT 35.2 % (37.0-47.0); IMMATURE GRANULOCYTES 0.5 % (0.0-5.0); MEAN CELL VOLUME 90.5 fL CALC (80.0-100.0); MEAN CORPUSCULAR HGB 30.8 pG CALC (26.0-32.0); MEAN CORPUSCULAR HGB CONC 34.1 g/L CALC (32.0-36.0); NEUT# 6.2 thou/uL (2.00-7.15); RED BLOOD COUNT 3.89 mill/uL (4.20-5.60); RED CELL DISTRI WIDTH 13.9 % (11.5-15.5)
[2018-12-28 18:21] LABS: URINE BILIRUBIN - DIPSTICK NEGATIVE (NEGATIVE); URINE BLOOD DIPSTICK NEGATIVE (NEGATIVE); URINE COLOR YELLOW; URINE GLUCOSE - DIPSTICK NEGATIVE (NEGATIVE); URINE KETONE NEGATIVE (NEGATIVE); URINE LEUK ESTERASE NEGATIVE (NEGATIVE); URINE NITRITE - DIPSTICK NEGATIVE (Negative); URINE PH 5.5 (4.5-8.0); URINE PROTEIN - DIPSTICK NEGATIVE (NEG-TRACE); URINE UROBILINOGEN - DIPSTICK 0.2 E.U./dL (0.2)
[2018-12-28 18:26] LABS: BARBITURATES NEGATIVE (NEGATIVE); COCAINE NEGATIVE (NEGATIVE); METHADONE NEGATIVE (NEGATIVE); OXCYCODONE NEGATIVE (NEGATIVE); TETRAHYDROCANNABIONOL NEGATIVE (NEGATIVE); TRICYLIC ANTIDEPRESSANTS NEGATIVE (NEGATIVE)
[2018-12-28 18:30] VITALS: BP 136/88
[2018-12-28 18:32] LABS: ALBUMIN 4.2 g/dL (3.2-5.0); ALKALINE PHOSPHATASE 115 u/l (38-126); BILIRUBIN, TOTAL 0.3 mg/dL (0.0-1.4); BUN 8 mg/dL (7-17); BUN/CREATININE RATIO 12 (12-20 (CALC)); CARBON DIOXIDE 25 mmol/l (22-30); CHLORIDE 96 mmol/l (95-108); CREATININE 0.7 mg/dL (0.5-1.0); GFR > 60 ML/MIN (>=60 (CALC)); GFR FOR AFR.AMER. > 60 ML/MIN (>=60 (CALC)); LIPASE 39 u/l (23-300); SGOT/AST 18 u/l (14-36); TOTAL PROTEIN 6.8 g/dL (6.3-8.2)
[2018-12-28 18:34] LABS: ANION GAP 15 (6-22 (CALC)); POTASSIUM 4.8 mmol/l (3.5-5.1); SODIUM 131 mmol/l (137-146)
[2018-12-28] MEDS ORDERED: ZOFRAN4 MG/TAB PO (18:46)
== END 2018-12-28 18:56 | disposition home or self-care (01) ==
LOC: ED 17:15
PROVIDERS: Family Medicine
DX: R10.84 Generalized abdominal pain (principal); R11.2 Nausea with vomiting, unspecified; R19.7 Diarrhea, unspecified; I10 Essential (primary) hypertension; E11.40 Type 2 diabetes mellitus with diabetic neuropathy, unspecified; F17.210 Nicotine dependence, cigarettes, uncomplicated; Z79.84 Long term (current) use of oral hypoglycemic drugs

== ENCOUNTER 2019-05-17 14:49 | Observation (INO) | payer OTHER ==
[~2019-05-17] VITALS: Ht 154.9 cm; Wt 80.2 kg
--- NOTE | 2019-05-17 14:49 | NUR ---
PT ARRIVES VIA EMS WITH C/O MIDSTERNAL CHEST PRESSURE THAT STARTED YESTERDAY. RESP EVEN AND UNLABORED.
[2019-05-17 15:16] LABS: HEMATOCRIT 36.3 % (37.0-47.0); HEMOGLOBIN 11.8 g/dl (12.0-16.0); IMMATURE GRANULOCYTES 0.4 % (0.0-5.0); MEAN CELL VOLUME 93.3 fL CALC (80.0-100.0); MEAN CORPUSCULAR HGB 30.3 pG CALC (26.0-32.0); MEAN CORPUSCULAR HGB CONC 32.5 g/L CALC (32.0-36.0); NEUT# 7.62 thou/uL (2.00-7.15); RED BLOOD COUNT 3.89 mill/uL (4.20-5.60); RED CELL DISTRI WIDTH 14.3 % (11.5-15.5)
--- NOTE | 2019-05-17 15:20 | NUR ---
PT WAS IN THE PROCESS OF BEING GIVIN HER MEDICATIONS THAT WERE ORDERED FOR CHEST PAIN AND WHEEZING IN LUNGS ZOFRKEMAL SOLU MEDROL MORPHINE MORPHINE WAS DILUTED WITH 10 MLS SALINE AND GIVIN SLOWLY OVER TWO MINS. WHEN SOLUTION WAS DONE PT BECAME NON VERBAL. AFTER SEVERAL ATTEMPTS TO BRIDGE TENDER PT IN BREATHING AND TALK TO US PT STARTED TO HYPERVENTILATE. MD WAS NOTIFIED, RESPIRATORY WAS CALLED, A NON REBREATHER WAS PUT ON PT. WE KEPT TRYING TO KEEP PT ALERT AND TO TRY TO TALK TO US. PT HAD EYES CLOSED AND WAS BREATHING AT APPROX 40 BREATHS PER MINUTE. MD IN ROOM/RESPIRATORY IN ROOM/NURSES IN ROOM
--- NOTE | 2019-05-17 15:30 | NUR ---
HOB UP, PT EYES ARE OPEN AND BREATHING IS CONTINUED TO BE FAST BUT NOT BEFORE. PT RESPIRATORY IS AT 25-30 BPM. PT IS ABLE TO MAKE GRUNTS AND A FEW WEEK WORDS OCCATIONALLY. RESPIRATORY STARTS TO GIVE TREATMENT. ANAPHYLAXIS KIT HAS BEEN ADMINISTERED. PT TOLERATED KIT WELL. EPI IS WITHHELD AT THIS TIME. PT IS MORE ALERT AND ANSWERING QUESTIONS. MD IS DX THIS REACTION AN ALLERGIC REATION FROM MORPHINE. PT WILL CONTINUE TO HAVE ONE ON ONE CARE AND MONITORING
[2019-05-17 15:37] LABS: ACT PARTIAL THROMBO TIME 23.6 SECONDS (20.0-32.5); ALBUMIN 4.4 g/dL (3.2-5.0); ALKALINE PHOSPHATASE 92 u/l (38-126); BUN 13 mg/dL (7-17); BUN/CREATININE RATIO 26 (12-20 (CALC)); CARBON DIOXIDE 24 mmol/l (22-30); CREATININE 0.5 mg/dL (0.5-1.0); GFR > 60 ML/MIN (>=60 (CALC)); GFR FOR AFR.AMER. > 60 ML/MIN (>=60 (CALC)); INTERNATIONAL NORMALIZED RATIO 0.9 RATIO (0.7-1.3); LIPASE 66 u/l (23-300); POTASSIUM 4.4 mmol/l (3.5-5.1); PROTHROMBIN TIME 9.4 SECONDS (9.0-12.5); TOTAL PROTEIN 7.8 g/dL (6.3-8.2)
[2019-05-17 15:39] LABS: ANION GAP 13 (6-22 (CALC)); BILIRUBIN, TOTAL 0.6 mg/dL (0.0-1.4); CHLORIDE 103 mmol/l (95-108); SGOT/AST 46 u/l (14-36); SODIUM 136 mmol/l (137-146)
--- NOTE | 2019-05-17 15:40 | NUR ---
PT CONTINUES TO SHOW SIGNS OF IMPROVEMENT. RESPIRATORY RATE CONTINUES TO FALL AND GET NEAR NORMAL LIMITS. PT IS ABLE TO ANSWER QUESTIONS. WILL CONTINEU TO MONITOR
--- NOTE | 2019-05-17 15:48 | NUR ---
PT SITTING UPRIGHT ,MAINTAINING HEAD UPRIGHT, RESP UNLABORED ADN EVEN, BILAT WHEEZING HEARD THROUGHOUT, PT ENCOURAGED TO COUGH TO CLEAR AIRWAY AND WHEEZING DECREASES TO MINIMAL. PT STATES CP IS STILL 7/10
--- NOTE | 2019-05-17 15:50 | NUR ---
UPDATED ON STATUS AND AT BEDSIDE TO [place]
[2019-05-17] MEDS ORDERED: LOPRESSOR25 M1 PO (16:07)
[2019-05-17] MEDS ORDERED: METHOCARBAM500 MG PO (16:08)
[2019-05-17] MEDS ORDERED: TRAZODONE50 MG PO (16:09)
--- NOTE | 2019-05-17 16:19 | NUR ---
PT CONTINUES TO REMAIN STABLE AND IN NO DISTRESS. PT IS SITTING UP IN BED. PT DENIES ANY NEEDS AT THIS TIME. WILL CONTINUE TO MONITOR
--- NOTE | 2019-05-17 16:28 | NUR ---
PTS IN HALLWAY YELLING "NO ALEX COME HERE". PT UP AMBULATORY IN HALLWAY WITH STEADY GAIT, FULLY CLOTHED. PT HAND HELD WALKED TO RESTROOMA DN URINATED WITHOUT PROBLEMS,PT RETURNED TO BED AND CLIMBED BACK IN BY HERSELF AND PLUGGED PULSE OX BACK IN. PT ALLOWED BP TO BE TAKEN WITHOUT COMPLAINT. UPDATED PT AND SPOUSE ON WAIT TIME FOR ADMIT
--- NOTE | 2019-05-17 17:45 | NUR ---
PT ADMISSION ORDERS FAXED TO [facility].
--- NOTE | 2019-05-17 18:36 | NUR ---
PT RESTING IN NO DISTRESS. VSS. RESP EVEN AND UNLABORED. SKIN PWD. PT UPDATED ON WAIT TIME FOR ADMIT
--- NOTE | 2019-05-17 19:00 | NUR ---
REPORT TO CLEMENTE JAMES RN
--- NOTE | 2019-05-17 19:05 | NUR ---
REPORT RECEIVED. PT RESTING. NAD. FEELS BETTER. VSS. RESP EASY REG
--- NOTE | 2019-05-17 19:30 | NUR ---
PT RANG CALL LIGHT/STATES CHEST PAIN HAS RETURNED. STATES 02/12. SAT AT 91 ON RA. PT PLACED ON NC AT 2 LPM. SAT INCREASED TO 96. PAIN 12/12. CM SR.
--- NOTE | 2019-05-17 19:37 | NUR ---
ADMITTING DR CALLED AND NOTIFIED OF PT C/O CHEST PAIN. ORDERS GIVEN.
--- NOTE | 2019-05-17 19:49 | NUR ---
PT WAS C/O CP. 12/[address] IBRAHIM NOTIFIED. ORDERED DILAUDID AND REPEAT EKGS FOR EACH EPISODE OF CHEST PAIN X 3. EKG COMPLETED AND READ BY DR. VYAS. DILAUDID NOT PROFILED YET.
--- NOTE | 2019-05-17 19:54 | NUR ---
ATTEMPTED TO CALL REPORT. ADRIEL, HOSPITAL STAFF PHARMACIST ANSWERED AND STATES SHE WILL HAVE NURSE CALL BACK.
--- NOTE | 2019-05-17 20:12 | NUR ---
DILAUDID GIVEN. PT RELAXING.
[2019-05-17 20:20] VITALS: BP 131/84
--- NOTE | 2019-05-17 20:20 | NUR ---
PT ARIVED TO THE FLOOR. RESPIRATIONS SHALLOW ON O2 @ 2L VIA NC. PT ALERT AND ORIENTED. PT ASSISTED TO BED. VS OBTAINED. PT ORIENTED TO ROOM AND CALL [facility] SYSTEM. TELE IN PLACE. PT PROVIDED WITH PITCHER OF WATER. CALL [facility] WITHIN REACH, WILL CONTINUE TO MONITOR.
--- NOTE | 2019-05-17 20:20 | NUR ---
TO FLOOR WITHOUT INCIDENT ON O2 @ 2 LPM/POCKET MONITOR. UPON ARRIVAL TO FLOOR. PT STOOL/WEIGHED AND AMB TO BED. ATTACHED TO O2. NURSE AT BEDSIDE.
[2019-05-18 00:11] VITALS: BP 117/76
--- NOTE | 2019-05-18 01:05 | NUR ---
PT RESTING IN BED. RESPIRATIONS SHALLOW ON O2 @ 2L VIA NC. PT PROVIDED WITH A WALKER PER REQUEST. SAFETY PRECAUTIONS IN PLACE. WILL CONTINUE TO MONITOR.
[2019-05-18 04:10] VITALS: BP 112/79
--- NOTE | 2019-05-18 05:13 | NUR ---
PT RESTING IN BED. RESPIRATIONS SHALLOW ON O2 @ 2L VIA NC. TELE IN PLACE. CALL [facility] WITHIN REACH. WILL CONTINUE TO MONITOR.
[2019-05-18 08:10] VITALS: BP 117/81
--- NOTE | 2019-05-18 08:10 | NUR ---
RESTING IN BED ON ROUNDS. RESP NON-LABORED AT REST. BREATH SOUNDS DIMINISHED WITH FAINT WHEEZE HEARD THROUGHOUT LUNG CARCAMO. SALINE LOCK IN LAC, SITE BENIGN. DISCUSSED PLAN OF CARE. CALL [facility] IN REACH.
--- NOTE | 2019-05-18 09:02 | NUR ---
OFFERED PT NEB TX. SHE DECLINED SHE STATES BREATHING IS FINE.
--- NOTE | 2019-05-18 10:12 | NUR ---
HAS CONSENTED TO PNEUMONIA VACCINE BUT DID HAVE THE VACCINE IN 2012 SHE WILL NOT NEED ANOTHER PNEUMONIA VACCINE UNTIL SHE TURNS 63.
[2019-05-18 10:20] VITALS: BP 120/84
[2019-05-18 15:30] VITALS: BP 124/88
[2019-05-18] MEDS ORDERED: MEDDOSEPAK PO (17:22)
[2019-05-18] MEDS ORDERED: ZITHROMAX500 MG PO (17:22)
--- NOTE | 2019-05-18 18:15 | NUR ---
Discharge instructions given. Patient verbalizes understanding of same. Discharged in stable condition via Ambulatory to Home with family. All belongings sent with pt.
== END 2019-05-18 18:04 | disposition home or self-care (01) ==
LOC: ED 14:49 → ED-I 16:14 → ED 16:44 → MS2 16:45
PROVIDERS: ADMIT Internal Medicine; ATTEND Internal Medicine
DX: R07.2 Precordial pain (principal); J43.9 Emphysema, unspecified; R22.0 Localized swelling, mass and lump, head; T40.2X5A Adverse effect of other opioids, initial encounter; E11.40 Type 2 diabetes mellitus with diabetic neuropathy, unspecified; I10 Essential (primary) hypertension; E78.5 Hyperlipidemia, unspecified; F17.200 Nicotine dependence, unspecified, uncomplicated; L93.0 Discoid lupus erythematosus; Z79.84 Long term (current) use of oral hypoglycemic drugs
CPT/HCPCS: G0378

== ENCOUNTER 2019-07-15 14:44 | Emergency (ER) | payer OTHER ==
[~2019-07-15 14:44] MED LIST changes: +LOPRESSOR25 M1 PO; +METHOCARBAM500 MG PO; +ZITHROMAX500 MG PO
== END 2019-07-15 14:50 | disposition left against medical advice (07) ==
LOC: ED 14:44 → LWOBS 14:50 → ED 14:50
DX: Z91.19 Patient's noncompliance with other medical treatment and regimen (principal)

== ENCOUNTER 2019-08-12 08:35 | Emergency (ER) | payer OTHER ==
[2019-08-12] MEDS ORDERED: ONDANSETRON4 MG PO (10:11)
[2019-08-12] MEDS ORDERED: TESSALON PER100 MG PO (10:11)
[2019-08-12] MEDS ORDERED: ZITHROMAX250 MG PO (10:11)
[2019-08-12] MEDS ORDERED: CIPRODEX1 ML AD (10:11)
[2019-08-12 10:35] VITALS: BP 160/102
== END 2019-08-12 10:35 | disposition home or self-care (01) ==
LOC: ED 08:35
DX: H66.91 Otitis media, unspecified, right ear (principal); J44.9 Chronic obstructive pulmonary disease, unspecified; I10 Essential (primary) hypertension; E11.40 Type 2 diabetes mellitus with diabetic neuropathy, unspecified; F17.210 Nicotine dependence, cigarettes, uncomplicated; Z88.1 Allergy status to other antibiotic agents; Z99.81 Dependence on supplemental oxygen; Z79.84 Long term (current) use of oral hypoglycemic drugs

== ENCOUNTER 2019-09-13 | Emergency (ER) | payer OTHER ==
[~2019-09-13] MED LIST changes: +CIPRODEX1 ML AD; +ONDANSETRON4 MG PO; +TESSALON PER100 MG PO
[2019-09-13 18:11] LABS: HEMATOCRIT 35.3 % (37.0-47.0); HEMOGLOBIN 11.2 g/dl (12.0-16.0); IMMATURE GRANULOCYTES 0.8 % (0.0-5.0); MEAN CELL VOLUME 92.7 fL CALC (80.0-100.0); MEAN CORPUSCULAR HGB 29.4 pG CALC (26.0-32.0); MEAN CORPUSCULAR HGB CONC 31.7 g/dL CAL (32.0-36.0); NEUT# 11.32 thou/uL (2.00-7.15); RED BLOOD COUNT 3.81 mill/uL (4.20-5.60); RED CELL DISTRI WIDTH 13.9 % (11.5-15.5)
[2019-09-13 18:19] LABS: ALBUMIN 4.3 g/dL (3.2-5.0); ALKALINE PHOSPHATASE 74 u/l (38-126); BUN 16 mg/dL (7-17); BUN/CREATININE RATIO 18 (12-20 (CALC)); CARBON DIOXIDE 23 mmol/l (22-30); CHLORIDE 108 mmol/l (95-108); CREATININE 0.9 mg/dL (0.5-1.0); GFR > 60 ML/MIN (>=60 (CALC)); GFR FOR AFR.AMER. > 60 ML/MIN (>=60 (CALC)); SGOT/AST 23 u/l (14-36); SODIUM 139 mmol/l (137-146); TOTAL PROTEIN 6.9 g/dL (6.3-8.2)
[2019-09-13 18:25] LABS: POTASSIUM 5.1 mmol/l (3.5-5.1)
[2019-09-13 18:27] LABS: ANION GAP 13 (6-22 (CALC)); BILIRUBIN, TOTAL 0.2 mg/dL (0.0-1.4)
[2019-09-13 18:31] LABS: INTERNATIONAL NORMALIZED RATIO 0.9 RATIO (0.7-1.3); PROTHROMBIN TIME 9.7 SECONDS (9.0-12.5)
[2019-09-13 18:54] LABS: MYOGLOBIN 88 ng/mL (0 - 62)
[2019-09-13] MEDS ORDERED: OMEPRAZOLE DR40 MG (19:32)
[2019-09-13] MEDS ORDERED: ROSUVASTATIN CA20 MG (19:32)
[2019-09-13] MEDS ORDERED: NAPROXEN375 MG PO (19:33)
[2019-09-13] MEDS ORDERED: PREDNISONE50 MG PO (19:36)
[2019-09-13] MEDS ORDERED: DOXYCYCL HYC100 MG PO (19:36)
--- NOTE | 2019-09-16 11:25 | NUR ---
Notified patient of Covid results (Negative). Advised patient to follow up with PCP or return to the ED for urgent needs. Advised patient to continue practicing Covid prevention. Patient verbalized understanding.
== END 2019-09-13 19:42 | disposition home or self-care (01) ==
PROVIDERS: Emergency Medicine
DX: J44.1 Chronic obstructive pulmonary disease with (acute) exacerbation (principal); I10 Essential (primary) hypertension; E11.40 Type 2 diabetes mellitus with diabetic neuropathy, unspecified; F17.210 Nicotine dependence, cigarettes, uncomplicated; Z79.84 Long term (current) use of oral hypoglycemic drugs; Z99.81 Dependence on supplemental oxygen; Z20.828 Contact with and (suspected) exposure to other viral communicable diseases

== ENCOUNTER 2019-10-05 | Emergency (ER) | payer OTHER ==
[~2019-10-05] MED LIST changes: +DOXYCYCL HYC100 MG PO; +NAPROXEN375 MG PO; +OMEPRAZOLE DR40 MG
[2019-10-05 14:49] LABS: HEMATOCRIT 37.7 % (37.0-47.0); HEMOGLOBIN 12.6 g/dl (12.0-16.0); MEAN CELL VOLUME 89.1 fL CALC (80.0-100.0); MEAN CORPUSCULAR HGB 29.8 pG CALC (26.0-32.0); MEAN CORPUSCULAR HGB CONC 33.4 g/dL CAL (32.0-36.0); NEUT# 11.26 thou/uL (2.00-7.15); RED BLOOD COUNT 4.23 mill/uL (4.20-5.60); RED CELL DISTRI WIDTH 14.7 % (11.5-15.5)
[2019-10-05 15:18] LABS: BUN 9 mg/dL (7-17); BUN/CREATININE RATIO 14 (12-20 (CALC)); CREATININE 0.6 mg/dL (0.5-1.0); GFR > 60 ML/MIN (>=60 (CALC)); GFR FOR AFR.AMER. > 60 ML/MIN (>=60 (CALC)); POTASSIUM 4.1 mmol/l (3.5-5.1)
[2019-10-05 15:19] LABS: ANION GAP 11 (6-22 (CALC)); CARBON DIOXIDE 28 mmol/l (22-30); CHLORIDE 95 mmol/l (95-108); SODIUM 130 mmol/l (137-146)
== END 2019-10-05 15:52 | disposition home or self-care (01) ==
PROVIDERS: Family Medicine
DX: R53.83 Other fatigue (principal); I10 Essential (primary) hypertension; E11.9 Type 2 diabetes mellitus without complications; J44.9 Chronic obstructive pulmonary disease, unspecified; F17.210 Nicotine dependence, cigarettes, uncomplicated; Z79.84 Long term (current) use of oral hypoglycemic drugs

== ENCOUNTER 2019-10-08 | Emergency (ER) | payer OTHER ==
[2019-10-08 18:16] LABS: HEMATOCRIT 39.7 % (37.0-47.0); HEMOGLOBIN 13.1 g/dl (12.0-16.0); IMMATURE GRANULOCYTES 1.2 % (0.0-5.0); MEAN CORPUSCULAR HGB 29.7 pG CALC (26.0-32.0); NEUT# 10.53 thou/uL (2.00-7.15); RED BLOOD COUNT 4.41 mill/uL (4.20-5.60)
[2019-10-08 18:46] LABS: ALBUMIN 4.4 g/dL (3.2-5.0); ALKALINE PHOSPHATASE 65 u/l (38-126); ANION GAP 12 (6-22 (CALC)); BUN 9 mg/dL (7-17); BUN/CREATININE RATIO 14 (12-20 (CALC)); CARBON DIOXIDE 29 mmol/l (22-30); CHLORIDE 93 mmol/l (95-108); CREATININE 0.7 mg/dL (0.5-1.0); GFR > 60 ML/MIN (>=60 (CALC)); GFR FOR AFR.AMER. > 60 ML/MIN (>=60 (CALC)); MAGNESIUM 1.8 mg/dL (1.6-2.3); POTASSIUM 4.3 mmol/l (3.5-5.1); SGOT/AST 18 u/l (14-36); SODIUM 130 mmol/l (137-146); TOTAL PROTEIN 7.3 g/dL (6.3-8.2)
[2019-10-08 18:47] LABS: BILIRUBIN, TOTAL 0.3 mg/dL (0.0-1.4)
[2019-10-08 19:00] LABS: MYOGLOBIN 24 ng/mL (0 - 62)
[2019-10-08 19:18] LABS: TSH, 3RD GENERATION 0.76 uIU/mL (0.47 - 4.68)
[2019-10-08] MEDS ORDERED: ZITHROMAX250 MG PO (19:49)
[2019-10-08] MEDS ORDERED: MEDDOSEPAK PO (19:49)
[2019-10-08] MEDS ORDERED: ULTRAM50 M1 PO (19:49)
== END 2019-10-08 21:09 | disposition home or self-care (01) ==
PROVIDERS: Family Medicine
DX: I10 Essential (primary) hypertension (principal); J44.1 Chronic obstructive pulmonary disease with (acute) exacerbation; S33.5XXA Sprain of ligaments of lumbar spine, initial encounter; E11.9 Type 2 diabetes mellitus without complications; F17.210 Nicotine dependence, cigarettes, uncomplicated; X58.XXXA Exposure to other specified factors, initial encounter; Z79.84 Long term (current) use of oral hypoglycemic drugs

== ENCOUNTER 2020-04-02 14:06 | Emergency (ER) | payer OTHER ==
[~2020-04-02] VITALS: Ht 154.9 cm; Wt 75.9 kg
[2020-04-02 14:22] VITALS: BP 127/77
[2020-04-03] MEDS ORDERED: CEPHALEXIN500 M1 PO (10:10)
== END 2020-04-02 14:55 | disposition left against medical advice (07) | DRG 951 ==
LOC: ED 14:06 → LWOBS 14:55
DX: Z53.21 Procedure and treatment not carried out due to patient leaving prior to being seen by health care provider (principal)

== ENCOUNTER 2020-04-03 09:44 | Emergency (ER) | payer OTHER ==
[~2020-04-03] VITALS: Ht 154.9 cm; Wt 75.9 kg
[2020-04-03] MEDS ORDERED: CEPHALEXIN500 M1 PO (10:10)
[2020-04-03 10:13] VITALS: BP 116/72
== END 2020-04-03 10:32 | disposition home or self-care (01) ==
LOC: ED 09:44
DX: L03.116 Cellulitis of left lower limb (principal); E11.9 Type 2 diabetes mellitus without complications; I10 Essential (primary) hypertension; J44.9 Chronic obstructive pulmonary disease, unspecified; Z79.84 Long term (current) use of oral hypoglycemic drugs; F17.200 Nicotine dependence, unspecified, uncomplicated

== ENCOUNTER 2021-02-20 21:01 | Emergency (ER) | payer OTHER ==
[~2021-02-20] VITALS: Ht 154.9 cm; Wt 54.0 kg
[~2021-02-20 21:01] MED LIST changes: +CEPHALEXIN500 M1 PO; -LISINOPRIL5 MG PO; +METFORMIN500 M2 PO
[2021-02-20] MEDS ORDERED: TRAZODONE50 MG PO (21:23)
[2021-02-20] MEDS ORDERED: LORTAB 1010 MG PO (21:40)
[2021-02-20] MEDS ORDERED: BACTRIM DS1 TAB PO (21:40)
[2021-02-20 21:54] VITALS: BP 138/77
== END 2021-02-20 22:02 | disposition home or self-care (01) ==
LOC: ED 21:01
DX: L02.413 Cutaneous abscess of right upper limb (principal); T63.301A Toxic effect of unspecified spider venom, accidental (unintentional), initial encounter; E11.9 Type 2 diabetes mellitus without complications; I10 Essential (primary) hypertension; J44.9 Chronic obstructive pulmonary disease, unspecified; F17.210 Nicotine dependence, cigarettes, uncomplicated; B95.62 Methicillin resistant Staphylococcus aureus infection as the cause of diseases classified elsewhere; Z88.3 Allergy status to other anti-infective agents; Z79.84 Long term (current) use of oral hypoglycemic drugs

== ENCOUNTER 2021-02-22 10:06 | Emergency (ER) | payer OTHER ==
[~2021-02-22] VITALS: Ht 154.9 cm; Wt 62.0 kg
[2021-02-22] MEDS ORDERED: FLUOXETINE HCL40 MG PO (10:32)
[2021-02-22] MEDS ORDERED: FLUOXETINE HYDR20 MG PO (10:32)
[2021-02-22] MEDS ORDERED: QUETIAPINE FUMA50 MG PO (10:32)
[2021-02-22] MEDS ORDERED: PAROXETINE30 MG PO (10:33)
[2021-02-22] MEDS ORDERED: ROSUVASTATIN CA40 MG PO (10:34)
[2021-02-22] MEDS ORDERED: LISINOPRIL5 MG PO (10:35)
[2021-02-22] MEDS ORDERED: ASPIRIN LOW DOS81 M1 PO (10:35)
[2021-02-22] MEDS ORDERED: OMEPRAZOLE DR40 MG PO (10:36)
[2021-02-22] MEDS ORDERED: BACTRIM DS1 TAB PO (10:42)
[2021-02-22] MEDS ORDERED: HYDROCO/APAP1 TA9 PO (10:42)
[2021-02-22 10:50] VITALS: BP 136/78
== END 2021-02-22 10:50 | disposition home or self-care (01) ==
LOC: ED 10:06
DX: Z48.01 Encounter for change or removal of surgical wound dressing (principal); E11.9 Type 2 diabetes mellitus without complications; I10 Essential (primary) hypertension; J44.9 Chronic obstructive pulmonary disease, unspecified; F17.200 Nicotine dependence, unspecified, uncomplicated; Z79.84 Long term (current) use of oral hypoglycemic drugs

== ENCOUNTER 2022-02-20 18:01 | Emergency (ER) | payer OTHER ==
[2022-02-20] VITALS (12 sets, daily range): BP systolic 104–143; BP diastolic 70–109
[~2022-02-20] VITALS: Ht 154.9 cm; Wt 48.2 kg
[~2022-02-20 18:01] MED LIST changes: +ASPIRIN LOW DOS81 M1 PO; +FLUOXETINE HCL40 MG PO; +FLUOXETINE HYDR20 MG PO; +HYDROCO/APAP1 TA9 PO; +LISINOPRIL5 MG PO; +OMEPRAZOLE DR40 MG PO; +PAROXETINE30 MG PO; +QUETIAPINE FUMA50 MG PO; +ROSUVASTATIN CA40 MG PO
[2022-02-20] MEDS ORDERED: NAPROXEN500 MG PO (19:52)
== END 2022-02-20 20:36 | disposition home or self-care (01) ==
LOC: ED 18:01
DX: S00.03XA Contusion of scalp, initial encounter (principal); I10 Essential (primary) hypertension; E11.9 Type 2 diabetes mellitus without complications; J44.9 Chronic obstructive pulmonary disease, unspecified; F41.0 Panic disorder [episodic paroxysmal anxiety]; F17.210 Nicotine dependence, cigarettes, uncomplicated; W01.190A Fall on same level from slipping, tripping and stumbling with subsequent striking against furniture, initial encounter; Y92.009 Unspecified place in unspecified non-institutional (private) residence as the place of occurrence of the external cause; Z79.84 Long term (current) use of oral hypoglycemic drugs
CPT/HCPCS: J2060

== ENCOUNTER 2022-03-05 12:12 | Emergency (ER) | payer OTHER ==
[2022-03-05] VITALS (9 sets, daily range): BP systolic 98–133; BP diastolic 73–86
[~2022-03-05] VITALS: Ht 154.9 cm; Wt 45.0 kg
[2022-03-05] MEDS ORDERED: TAM75CAP PO (13:53)
== END 2022-03-05 14:17 | disposition home or self-care (01) ==
LOC: ED 12:12
DX: J11.1 Influenza due to unidentified influenza virus with other respiratory manifestations (principal); I10 Essential (primary) hypertension; E11.9 Type 2 diabetes mellitus without complications; J44.9 Chronic obstructive pulmonary disease, unspecified; F41.0 Panic disorder [episodic paroxysmal anxiety]; Z79.84 Long term (current) use of oral hypoglycemic drugs; F17.210 Nicotine dependence, cigarettes, uncomplicated; Z20.822 Contact with and (suspected) exposure to COVID-19

== ENCOUNTER 2022-06-06 13:55 | Emergency (ER) | payer OTHER ==
[~2022-06-06] VITALS: Ht 154.9 cm; Wt 50.0 kg
[~2022-06-06 13:55] MED LIST changes: +PAXLOVID PO; +TAM75CAP PO
[2022-06-06] MEDS ORDERED: NAPROXEN500 MG PO (15:53)
[2022-06-06] MEDS ORDERED: METHOCARBAMOL500 MG PO (15:53)
[2022-06-06 16:16] VITALS: BP 123/95
== END 2022-06-06 17:00 | disposition home or self-care (01) ==
LOC: ED 13:55
DX: S16.1XXA Strain of muscle, fascia and tendon at neck level, initial encounter (principal); X50.0XXA Overexertion from strenuous movement or load, initial encounter; I10 Essential (primary) hypertension; E11.9 Type 2 diabetes mellitus without complications; J44.9 Chronic obstructive pulmonary disease, unspecified; F41.0 Panic disorder [episodic paroxysmal anxiety]; F17.200 Nicotine dependence, unspecified, uncomplicated

== ENCOUNTER 2022-07-21 21:36 | Emergency (ER) | payer OTHER ==
[~2022-07-21] VITALS: Ht 154.9 cm; Wt 45.6 kg
[~2022-07-21 21:36] MED LIST changes: +METHOCARBAMOL500 MG PO
[2022-07-22 01:29] VITALS: BP 113/83
== END 2022-07-22 01:32 | disposition left against medical advice (07) ==
LOC: ED 21:36
DX: J11.1 Influenza due to unidentified influenza virus with other respiratory manifestations (principal); M54.9 Dorsalgia, unspecified; I10 Essential (primary) hypertension; E11.9 Type 2 diabetes mellitus without complications; J44.9 Chronic obstructive pulmonary disease, unspecified; F17.210 Nicotine dependence, cigarettes, uncomplicated; Z53.29 Procedure and treatment not carried out because of patient's decision for other reasons

== ENCOUNTER 2022-09-04 09:25 | Emergency (ER) | payer OTHER ==
[~2022-09-04] VITALS: Ht 154.9 cm; Wt 45.0 kg
[2022-09-04 09:31] VITALS: BP 141/86
[2022-09-04 09:45] VITALS: BP 113/76
[2022-09-04 10:00] VITALS: BP 116/84
[2022-09-04 10:15] VITALS: BP 134/92
[2022-09-04] MEDS ORDERED: DOXY-CAPS100 MG PO (10:19)
[2022-09-04] MEDS ORDERED: HYDROCO/APAP1 TA9 PO (10:34)
[2022-09-04 10:59] VITALS: BP 134/92
== END 2022-09-04 11:01 | disposition home or self-care (01) ==
LOC: ED 09:25
DX: S91.331A Puncture wound without foreign body, right foot, initial encounter (principal); I10 Essential (primary) hypertension; E11.9 Type 2 diabetes mellitus without complications; J44.9 Chronic obstructive pulmonary disease, unspecified; F41.0 Panic disorder [episodic paroxysmal anxiety]; F17.200 Nicotine dependence, unspecified, uncomplicated; X58.XXXA Exposure to other specified factors, initial encounter; Z88.3 Allergy status to other anti-infective agents

== ENCOUNTER 2022-09-28 20:10 | Emergency (ER) | payer OTHER ==
[~2022-09-28] VITALS: Ht 154.9 cm; Wt 43.5 kg
[2022-09-28] VITALS (10 sets, daily range): BP systolic 117–135; BP diastolic 83–100
[~2022-09-28 20:10] MED LIST changes: +DOXY-CAPS100 MG PO
[2022-09-28] MEDS ORDERED: CYCLOBENZAPRINE10 MG PO (22:25)
[2022-09-28] MEDS ORDERED: ULTRAM50 MG PO (22:25)
== END 2022-09-28 22:38 | disposition home or self-care (01) ==
LOC: ED 20:10
DX: S16.1XXA Strain of muscle, fascia and tendon at neck level, initial encounter (principal); I10 Essential (primary) hypertension; E11.9 Type 2 diabetes mellitus without complications; J44.9 Chronic obstructive pulmonary disease, unspecified; F17.200 Nicotine dependence, unspecified, uncomplicated; F41.9 Anxiety disorder, unspecified; X58.XXXA Exposure to other specified factors, initial encounter

== ENCOUNTER 2022-10-16 00:20 | Emergency (ER) | payer OTHER ==
[~2022-10-16] VITALS: Ht 154.9 cm; Wt 44.0 kg
[2022-10-16] VITALS (22 sets, daily range): BP systolic 80–151; BP diastolic 52–101
[~2022-10-16 00:20] MED LIST changes: +CYCLOBENZAPRINE10 MG PO; +ULTRAM50 MG PO
[2022-10-16 00:53] LABS: BASO% 1.4 % (0-3); EOS% 3.3 % (0-8); HEMATOCRIT 35.3 % (37.0-47.0); HEMOGLOBIN 11.3 g/dl (12.0-16.0); IMMATURE GRANULOCYTES 0.4 % (0.0-5.0); LYMPH% 43.1 % (15-41); MEAN CELL VOLUME 92.4 fL CALC (80.0-100.0); MEAN CORPUSCULAR HGB 29.6 pG CALC (26.0-32.0); NEUT# 2.13 thou/uL (2.00-7.15); NEUT% 43.8 % (42-76); RED BLOOD COUNT 3.82 mill/uL (4.20-5.60); RED CELL DISTRI WIDTH 13.6 % (11.5-15.5)
[2022-10-16 00:55] LABS: URINE BILIRUBIN - DIPSTICK NEGATIVE (NEGATIVE); URINE BLOOD DIPSTICK NEGATIVE (NEGATIVE); URINE COLOR YELLOW; URINE GLUCOSE - DIPSTICK NEGATIVE (NEGATIVE); URINE KETONE NEGATIVE (NEGATIVE); URINE LEUK ESTERASE NEGATIVE (NEGATIVE); URINE PH 6.5 (4.5-8.0); URINE PROTEIN - DIPSTICK NEGATIVE (NEG-TRACE); URINE SPECIFIC GRAVITY <=1.005; URINE UROBILINOGEN - DIPSTICK 0.2 E.U./dL (0.2)
[2022-10-16 00:56] LABS: URINE NITRITE - DIPSTICK NEGATIVE (Negative)
[2022-10-16 01:06] LABS: ALKALINE PHOSPHATASE 102 u/l (38-126); ANION GAP 10 (6-22 (CALC)); BUN 10 mg/dL (7-17); BUN/CREATININE RATIO 16 (12-20 (CALC)); CARBON DIOXIDE 25 mmol/l (22-30); CHLORIDE 105 mmol/l (95-108); CREATININE 0.6 mg/dL (0.5-1.0); GFR FOR AFR.AMER. > 60 ML/MIN (>=60 (CALC)); GFR OTHER RACES > 60 ML/MIN (>=60 (CALC)); MAGNESIUM 1.8 mg/dL (1.6-2.3); POTASSIUM 3.7 mmol/l (3.5-5.1); SODIUM 137 mmol/l (137-146); TOTAL PROTEIN 6.7 g/dL (6.3-8.2)
[2022-10-16 01:10] LABS: SGOT/AST 56 u/l (14-36)
[2022-10-16 01:19] LABS: ETHYL ALCOHOL 0 mg/dl (0-30)
== END 2022-10-16 12:38 | disposition home or self-care (01) ==
LOC: ED 00:20
PROVIDERS: Family Medicine
DX: T43.212A Poisoning by selective serotonin and norepinephrine reuptake inhibitors, intentional self-harm, initial encounter (principal); T42.6X2A Poisoning by other antiepileptic and sedative-hypnotic drugs, intentional self-harm, initial encounter; T48.202A Poisoning by unspecified drugs acting on muscles, intentional self-harm, initial encounter; T40.422A Poisoning by tramadol, intentional self-harm, initial encounter; T39.312A Poisoning by propionic acid derivatives, intentional self-harm, initial encounter; R53.83 Other fatigue; I10 Essential (primary) hypertension; E11.9 Type 2 diabetes mellitus without complications; J44.9 Chronic obstructive pulmonary disease, unspecified; F41.0 Panic disorder [episodic paroxysmal anxiety]; F17.200 Nicotine dependence, unspecified, uncomplicated